=== PATIENT | female | born 1995 | race Caucasian/White ===

== ENCOUNTER 2016-05-31 02:21 | Emergency (ER) | payer BC ==
[~2016-05-31] VITALS: Ht 139.7 cm; Wt 40.8 kg
[2016-05-31] MEDS ORDERED: BLISOVI FE 1-21 EACH PO (02:46)
[2016-05-31 03:01] LABS: HEMATOCRIT 41.9 % (37.0-47.0); HEMOGLOBIN 14.3 g/dl (12.0-16.0); MEAN CELL VOLUME 86.4 fl (81.0-99.0); MEAN CORPUSCULAR HGB 29.5 pg (27.0-31.0); MEAN CORPUSCULAR HGB CONC 34.1 g/dl (33.0-37.0); PLATELET COUNT AUTOMATED 274 10*3/uL (130-400); RED BLOOD COUNT 4.85 10*6/uL (4.10-5.10); RED CELL DISTRI WIDTH 11.6 % (0-14.5); WHITE BLOOD COUNT 21.5 10*3/uL (4.8-10.8)
[2016-05-31 03:16] LABS: ALKALINE PHOSPHATASE 47 U/L (45-117); BILIRUBIN, TOTAL 0.4 mg/dl (0.2-1.0); BUN 13 mg/dl (7-24); CARBON DIOXIDE 20 mmol/L (21-32); CHLORIDE 108 mmol/L (98-107); EST GLOM FILT AFRICAN AMERICAN > 60 ml/min; GLUCOSE 168 mg/dL (65-99); POTASSIUM 3.7 mmol/L (3.5-5.1); SGOT/AST 26 IU/L (3-35); SGPT/ALT 29 U/L (12-78); SODIUM 141 mmol/L (136-145); TOTAL PROTEIN 8.2 gm/dL (6.4-8.2)
[2016-05-31 03:17] LABS: LYMPHOCYTE # 1.3 10*3/uL (1.3-4.4); MAGNESIUM 1.8 mg/dL (1.5-2.1); MONOCYTE # 1.5 10*3/uL (0.1-1.0); NEUTROPHIL # 18.7 10*3/uL (2.3-7.9); NEUTROPHILS 87 % (47-73); PLATELET SUFFICIENCY NORMAL (NORMAL); TOTAL CELLS COUNTED 100 #CELLS
[2016-05-31 03:18] LABS: C-REACTIVE PROTEIN < 0.29 MG/DL (0-0.3)
[2016-05-31] MEDS ORDERED: ZOFRAN ODT4 MG SL (04:53)
== END 2016-05-31 05:32 | disposition home or self-care (01) ==
LOC: ED 02:21
PROVIDERS: Emergency Medicine
DX: K52.9 Noninfective gastroenteritis and colitis, unspecified (principal); Z79.899 Other long term (current) drug therapy